=== PATIENT | male | born 1960 | race Caucasian/White ===

== ENCOUNTER 2017-09-29 07:12 | Day surgery (SDC) | payer OTHER ==
[~2017-09-29] VITALS: Ht 170.2 cm; Wt 76.9 kg
[2017-09-29 07:38] VITALS: Ht 170.2 cm; Wt 76.9 kg
[2017-09-29 07:47] VITALS: BP 127/83; PULSE 77; RESP 12
[2017-09-29] MEDS ORDERED: MIDAZOLAM 1 MG/ML 2 ML INJ ONE ×3 (09:23)
[2017-09-29] MEDS ORDERED: FENTAnyl 50 MCG/ML VIAL ONE ×2 (09:23)
--- NOTE | 2017-09-29 09:24 | OPPN ---
Date/Time of Note Date/Time of Note DATE: 09/29/17 TIME: 09:21 Proc Note GI Procedure Date 09/29/17 Indication: screening/surveillance Pre-procedure Diagnosis screening colonoscopy Post-procedure Diagnosis hemorrhoids Procedure Performed: Colonoscopy Surgeon see signature line [employer] App[employer] none Anesthesia Type: moderate sedation Tourniquet Time none EBL none Transfusion required none Biopsy 1: none Grafts/Implants none Tubes/Drains none Complication(s) none Procedure Description colonjoscopy done under mod sedation hemorrhoids noted DAVID MILLS MD Sep 29, 2017 09:24
[2017-09-29 09:43] VITALS: BP 115/81; PULSE 80; RESP 24
--- NOTE | 2017-09-29 13:11 | GILP ---
DATE OF PROCEDURE: PROCEDURE: Colonoscopy. PREOPERATIVE DIAGNOSIS: Screening colonoscopy to rule out colon polyps. POSTOPERATIVE DIAGNOSIS: Minimal external hemorrhoids. Rest of the colon appeared normal. DESCRIPTION OF PROCEDURE: After informed written consent was obtained, the patient was asked to lie on the left lateral side, 6 mg Versed and 125 mcg of fentanyl was given as intravenous anesthesia. When the patient became somnolent, the Olympus video colonoscope was introduced into the rectum and scope was advanced all the way to the cecum. Entire colon appeared perfectly normal with no mucosal abnormality, very tortuous and redundant colon was noted. However, cecum was examined. On the way out, minimal external hemorrhoids were noted and the procedure was terminated. PLAN: Recommend a high fiber diet. Repeat colonoscopy in 10 years. Dictated By: DAVID MILLS MD NC/NTS Conf#: [id number] DID#: [id number] CC: Ilene Zhu MD;*EndCC*
== END 2017-09-29 19:45 | disposition home or self-care (01) ==
LOC: GIL 07:12
PROVIDERS: ATTEND Internal Medicine Gastroenterology
DX: Z12.11 Encounter for screening for malignant neoplasm of colon (principal); K64.4 Residual hemorrhoidal skin tags
CPT/HCPCS: 45378; J2250; J3010; Z7610